=== PATIENT | female | born 1980 | race Caucasian/White ===

== ENCOUNTER → 2023-08-30 | Outpatient (CLI) | payer OTHER | END | disposition home or self-care (01) | LOC: SONOGRAMA 11:01 | PROVIDERS: ATTEND Pathology Anatomic Pathology & Clinical Pathology | DX: D44.0 Neoplasm of uncertain behavior of thyroid gland (principal); E07.9 Disorder of thyroid, unspecified ==

== ENCOUNTER 2023-12-17 10:16 | Emergency (ER) | payer OTHER ==
[~2023-12-17] VITALS: Ht 165.1 cm; Wt 61.7 kg
[2023-12-17] MEDS ORDERED: KETOROLAC TROMETHAMINE 30 MG VIAL IM STA (11:32)
== END 2023-12-17 12:53 | disposition home or self-care (01) ==
LOC: ER 10:16
DX: M54.2 Cervicalgia (principal)

== ENCOUNTER 2024-08-04 12:26 | Outpatient (CLI) | payer OTHER | END 2024-08-04 12:30 | disposition home or self-care (01) | LOC: SONOGRAMA 12:26 | PROVIDERS: ATTEND Pathology Anatomic Pathology & Clinical Pathology | DX: D34 Benign neoplasm of thyroid gland (principal); E06.3 Autoimmune thyroiditis; E04.8 Other specified nontoxic goiter ==